=== PATIENT | female | born 1990 | race Caucasian/White ===

== ENCOUNTER 2019-03-31 07:51 | Outpatient (CLI) | payer BC ==
--- NOTE | 2019-03-31 09:10 | ULT ---
ULTRASOUND ABDOMEN COMPLETE HISTORY: Abdominal pain. TECHNIQUE: García-scale ultrasound evaluation of the liver, gallbladder, spleen, pancreas, common bile duct, kidne ys, abdominal aorta, and inferior vena cava (IVC). FINDINGS: No focal hepatic lesion. No acute gallbladder pathology. No evidence of ascites. The common duct i s normal at 2-3 mm diameter. Imaged IVC and aorta reveal no significant abnormality. No hydronephro sis of either kidney. The spleen is unremarkable. IMPRESSION: No acute intraabdominal abnormality evident by sonographic evaluation. POS: [facility]
== END 2019-03-31 07:52 | disposition home or self-care (01) ==
LOC: ULT 07:51
PROVIDERS: ATTEND Physician Assistant Medical
DX: R10.11 Right upper quadrant pain (principal); R10.13 Epigastric pain
CPT/HCPCS: 76700

== ENCOUNTER 2023-01-20 09:57 | Outpatient (CLI) | payer BC | END 2023-01-20 09:58 | disposition home or self-care (01) | LOC: BICRAD 09:57 | PROVIDERS: ATTEND Nurse Practitioner Community Health | DX: J06.9 Acute upper respiratory infection, unspecified (principal) | CPT/HCPCS: 71046 ==